=== PATIENT | male | born 2000 | race African-American/Black ===

== ENCOUNTER 2024-04-18 06:41 | Emergency (ER) | payer MEDICAID ==
[~2024-04-18] VITALS: Ht 180.3 cm; Wt 75.0 kg
[2024-04-18 07:10] VITALS: O2SAT 100
[2024-04-18 07:46] LABS: BASOPHILS % 0.4 % (0.0-2.0); EOSINOPHILS % 1.7 % (0.0-5.0); HEMATOCRIT. 42.7 % (42.0-52.0); LYMPHOCYTES % 44.2 % (20.0-50.0); MEAN CORPUSCULAR HEMOGLOBIN 30.1 pg (28.0-32.0); MEAN CORPUSCULAR HGB CONC 32.8 g/dL (31.0-37.0); MEAN CORPUSCULAR VOLUME 91.9 fL (80.0-94.0); MEAN PLATELET VOLUME 7.1 fl (7.4-10.4); MONOCYTES % 13.1 % (2.0-8.0); NEUTROPHILS % 40.6 % (40.0-76.0); PLATELET 226 x1000/uL (130-400); RED BLOOD CELL COUNT 4.64 mill/uL (4.7-6.1); RED CELL DISTRIBUTION WIDTH 12.5 % (11.6-14.6); WHITE BLOOD COUNT 2.4 x1000/uL (4.5-11.0)
[2024-04-18 07:58] LABS: CHLORIDE 109 mEq/L (98-107); POTASSIUM 3.9 mEq/L (3.5-5.1); SODIUM 136 mEq/L (136-145)
[2024-04-18 07:59] LABS: CALCIUM 9.1 mg/dL (8.7-10.4); CARBON DIOXIDE 25 mEq/L (21-32)
[2024-04-18 08:04] LABS: CLARITY URINE CLEAR (CLEAR); COLOR URINE YELLOW (YELLOW); GLUCOSE URINE NEGATIVE (NEGATIVE); KETONES URINE NEGATIVE (NEGATIVE); LEUKOCYTE ESTERASE URINE NEGATIVE (NEGATIVE); NITRITE URINE NEGATIVE (NEGATIVE); OCCULT BLOOD URINE NEGATIVE (NEGATIVE); PROTEIN URINE NEGATIVE (NEGATIVE); SPECIFIC GRAVITY URINE 1.007 (1.005-1.030); UROBILINOGEN URINE 0.2 E.U./dL (0.2-1.0)
[2024-04-18 08:04] LABS: CREATININE 0.9 mg/dL (0.6-1.3); GLUCOSE 91 mg/dL (70-105); UREA NITROGEN BLOOD 10 mg/dL (9-23)
[2024-04-18 08:06] LABS: ALANINE AMINOTRANSFERASE 14 IU/L (10-49); ALBUMIN 4.6 g/dL (3.2-4.8); ASPARTATE AMINOTRANSFERASE 18 IU/L (<34); BILIRUBIN DIRECT 0.3 mg/dL (<=3.0); BILIRUBIN TOTAL 1.2 mg/dL (0.1-1.0); PROTEIN TOTAL 7.1 g/dL (6.0-8.3)
[2024-04-18] MEDS ORDERED: DOXY100C5 MT (08:51)
[2024-04-18] MEDS: CEFTRIAXONE SODIUM 500MG VIAL IM ONE (10:05)
[2024-04-18 10:17] VITALS: BP 122/63; PULSE 62; RESP 16; TEMP 98.2
[2024-04-19 15:09] LABS: CHLAMYDIA TRACHOMATIS NAA Negative (Negative); NEISSERIA GONORRHOEAE NAA Negative (Negative)
== END 2024-04-18 10:18 | disposition home or self-care (01) ==
LOC: ER 07:06
DX: N41.0 Acute prostatitis (principal)
CPT/HCPCS: 99283; 87491; 87591; 80076; 80048; 81003; 85025; 36415; 96372; J0696

== ENCOUNTER 2024-05-03 15:18 | Emergency (ER) | payer MEDICAID ==
[~2024-05-03] VITALS: Ht 182.9 cm; Wt 91.0 kg
[~2024-05-03 15:18] MED LIST: DOXY100C5 MT
[2024-05-03 15:52] VITALS: O2SAT 100
[2024-05-03 16:37] LABS: BASOPHILS % 0.5 % (0.0-2.0); EOSINOPHILS % 1.1 % (0.0-5.0); HEMATOCRIT. 41.3 % (42.0-52.0); HEMOGLOBIN. 13.5 g/dL (14.0-18.0); LYMPHOCYTES % 41.6 % (20.0-50.0); MEAN CORPUSCULAR HEMOGLOBIN 29.8 pg (28.0-32.0); MEAN CORPUSCULAR HGB CONC 32.7 g/dL (31.0-37.0); MEAN CORPUSCULAR VOLUME 91.1 fL (80.0-94.0); MEAN PLATELET VOLUME 6.9 fl (7.4-10.4); MONOCYTES % 10.3 % (2.0-8.0); NEUTROPHILS % 46.5 % (40.0-76.0); PLATELET 244 x1000/uL (130-400); RED BLOOD CELL COUNT 4.53 mill/uL (4.7-6.1); RED CELL DISTRIBUTION WIDTH 12.5 % (11.6-14.6); WHITE BLOOD COUNT 3.9 x1000/uL (4.5-11.0)
[2024-05-03 16:47] LABS: CHLORIDE 105 mEq/L (98-107); SODIUM 137 mEq/L (136-145)
[2024-05-03 16:48] LABS: CALCIUM 9.6 mg/dL (8.7-10.4); CARBON DIOXIDE 29 mEq/L (21-32)
[2024-05-03 16:53] LABS: CREATININE 0.9 mg/dL (0.6-1.3); GLUCOSE 93 mg/dL (70-105); UREA NITROGEN BLOOD 14 mg/dL (9-23)
[2024-05-03 17:11] LABS: CLARITY URINE CLEAR (CLEAR); COLOR URINE YELLOW (YELLOW); GLUCOSE URINE NEGATIVE (NEGATIVE); KETONES URINE TRACE (NEGATIVE); LEUKOCYTE ESTERASE URINE NEGATIVE (NEGATIVE); NITRITE URINE NEGATIVE (NEGATIVE); OCCULT BLOOD URINE NEGATIVE (NEGATIVE); PH URINE 6.5 (4.5-8.0); PROTEIN URINE NEGATIVE (NEGATIVE); SPECIFIC GRAVITY URINE 1.026 (1.005-1.030); UROBILINOGEN URINE 0.2 E.U./dL (0.2-1.0)
[2024-05-03] MEDS ORDERED: DOXY-456 MT (19:27)
[2024-05-03] MEDS: CEFTRIAXONE SODIUM 500MG VIAL IM NR (19:46)
[2024-05-03] MEDS: LIDOCAINE HCL/PF 1% 10 MG/ML 5ML VIAL INFIL NR (19:46)
[2024-05-03] MEDS: AZITHROMYCIN 500 MG TABLET PO NR (19:52)
[2024-05-03 20:20] VITALS: BP 115/67; PULSE 61; RESP 20; TEMP 98.1
[2024-05-06 04:11] LABS: CHLAMYDIA TRACHOMATIS NAA Negative (Negative); NEISSERIA GONORRHOEAE NAA Negative (Negative)
== END 2024-05-03 20:21 | disposition home or self-care (01) ==
LOC: ER 15:18
DX: N41.8 Other inflammatory diseases of prostate (principal); K62.89 Other specified diseases of anus and rectum
CPT/HCPCS: 36415; 80048; 81003; 85025; 87070; 87077; 87491; 87591; 99283

== ENCOUNTER 2024-05-09 13:58 | Emergency (ER) | payer MEDICAID ==
[~2024-05-09] VITALS: Ht 180.3 cm; Wt 75.0 kg
[~2024-05-09 13:58] MED LIST changes: +DOXY-456 MT
[2024-05-09 14:17] VITALS: BP 124/81; PULSE 108; RESP 16; TEMP 98.6; O2SAT 100
[2024-05-09 15:37] LABS: CLARITY URINE CLEAR (CLEAR); COLOR URINE YELLOW (YELLOW); GLUCOSE URINE NEGATIVE (NEGATIVE); KETONES URINE 3+ (NEGATIVE); LEUKOCYTE ESTERASE URINE NEGATIVE (NEGATIVE); NITRITE URINE NEGATIVE (NEGATIVE); OCCULT BLOOD URINE NEGATIVE (NEGATIVE); PH URINE 5.5 (4.5-8.0); PROTEIN URINE TRACE (NEGATIVE)
[2024-05-09 16:02] LABS: BACTERIA URINE 1+; RBC URINE NONE SEEN /hpf (0-2); SQUAMOUS EPITHELIAL CELL URINE 1+ /lpf (RARE/1+); WBC URINE 0-2 /hpf (0-2)
[2024-05-09] MEDS ORDERED: DOXY100T28 MT (16:41)
[2024-05-09] MEDS ORDERED: CEFTRIAXONE SODIUM 500MG VIAL IM ONE (16:45)
== END 2024-05-09 17:10 | disposition home or self-care (01) ==
LOC: ER 14:07
DX: R30.0 Dysuria (principal)
CPT/HCPCS: 81003; 87491; 87591; 99283